=== PATIENT | female | born 1970 ===

== ENCOUNTER 2017-09-25 00:40 | Emergency (ER) | payer SELFPAY ==
[2017-09-25 00:44] VITALS: BMI 31.1
[2017-09-25] MEDS ORDERED: Albuterol-Ipratrop 3 mg / 0.5 (3 ml) UD IH STA ×3 (00:51→01:47)
--- NOTE | 2017-09-25 00:53 | ED PDOC ---
Arrival/HPI - General Time Seen by Provider: 09/25/17 00:44 Historian: Patient - History of Present Illness Narrative History of Present Illness (Text): 09/25/17 00:50 47 year old female whose past medical history includes bronchial asthma, seasonal allergies presents to the emergency department complaining of wheezing and shortness of breath that began today. Patient states she had been using her medication at home with only moderate relief. Patient reports nasal congestion, itchy watery eyes but denies any fever, chills, cough, chest pain, nausea, vomiting, diarrhea, urinary symptoms, back pain, neck pain, headache, dizziness , or any other complaints. PMD: Dr. Mercedes Gagnon Time/Duration: Other (today) Symptom Onset: Sudden Symptom Course: Unchanged Activities at Onset: Light Context: Home Past Medical History - Provider Review Nursing Documentation Reviewed: Yes Family/Social History - Physician Review Nursing Documentation Reviewed: Yes Family/Social History: No Known Family HX Allergies/Home Meds Allergies/Adverse Reactions: Allergies No Known Allergies Allergy (Verified 09/25/17 00:44) Home Medications: Home Meds Medication Instructions Recorded Confirmed Albuterol HFA [Ventolin HFA 90 1 puff INH PRN PRN 09/25/17 09/25/17 mcg/actuation (8 g)] Loratadine [Claritin] 10 mg PO DAILY 09/25/17 09/25/17 Review of Systems - Physician Review All systems were reviewed & negative as marked: Yes - Review of Systems Constitutional: absent: Fevers, Other (Chills) Respiratory: SOB, Wheezing Cardiovascular: absent: Chest Pain Gastrointestinal: absent: Diarrhea, Nausea, Vomiting Genitourinary Female: absent: Dysuria, Frequency, Hematuria Musculoskeletal: absent: Back Pain, Neck Pain Neurological: absent: Headache, Dizziness Physical Exam Vital Signs Reviewed: Yes Vital Signs Pulse Resp BP Pulse Ox 09/25/17 02:18 119 H 18 147/79 96 09/25/17 01:42 115 H 16 132/88 97 09/25/17 00:52 121 H 20 160/103 H 100 09/25/17 00:51 147 H 26 H 166/143 H 92 L 09/25/17 00:49 26 H 91 L Temperature: Afebrile Blood Pressure: Hypertensive Pulse: Tachycardic Respiratory Rate: Normal Appearance: Positive for: Well-Appearing, Non-Toxic, Comfortable Pain Distress: None Mental Status: Positive for: Alert and Oriented X 3 - Systems Exam Head: Present: Atraumatic, Normocephalic Pupils: Present: PERRL Extroacular Muscles: Present: EOMI Conjunctiva: Present: Normal Mouth: Present: Moist Mucous Membranes Pharnyx: Present: Normal Nose (Internal): Present: Other (Nasal congestion) Neck: Present: Normal Range of Motion Respiratory/Chest: Present: Wheezes (wheezing bilaterally ). No: Respiratory Distress, Accessory Muscle Use Cardiovascular: Present: Regular Rate and Rhythm, Normal S1, S2. No: Murmurs Abdomen: No: Tenderness, Distention, Peritoneal Signs Back: Present: Normal Inspection Upper Extremity: Present: Normal Inspection. No: Cyanosis, Edema Lower Extremity: Present: Normal Inspection. No: Edema Neurological: Present: GCS=15, CN II-XII Intact, Speech Normal Skin: Present: Warm, Dry, Normal Color. No: Rashes Psychiatric: Present: Alert, Oriented x 3, Normal Insight, Normal Concentration Medical Decision Making ED Course and Treatment: 09/25/17 00:52 Impression: 47 year old female presents complaining of shortness of breath associated wheezing that began today. Patient's past medical history includes bronchial asthma. Plan: -- Duoneb, Solu-medrol -- Reassess and disposition Progress Notes: - Medication Orders Current Medication Orders: Discontinued Medications Albuterol/Ipratropium (Duoneb 3 Mg/0.5 Mg (3 Ml) Ud) 3 ml IH ONCE STA Stop: 09/25/17 00:52 Last Admin: 09/25/17 00:54 Dose: 3 ml Albuterol/Ipratropium (Duoneb 3 Mg/0.5 Mg (3 Ml) Ud) 3 ml IH ONCE STA Stop: 09/25/17 01:05 Last Admin: 09/25/17 01:15 Dose: 3 ml Albuterol/Ipratropium (Duoneb 3 Mg/0.5 Mg (3 Ml) Ud) 3 ml IH ONCE STA Stop: 09/25/17 01:48 Last Admin: 09/25/17 01:50 Dose: 3 ml Methylprednisolone (Solu-Medrol) 125 mg IVP ONCE ONE Stop: 09/25/17 00:52 Last Admin: 09/25/17 00:56 Dose: 125 mg IVP Administration Document 09/25/17 00:56 SHAN (Rec: 09/25/17 00:56 SHAN [id number]) Charges for Administration # of IVP Administrations 1 - Scribe Statement The provider has reviewed the documentation as recorded by the Sandip Agustin Provider Scribe Attestation: All medical record entries made by the Scribe were at my direction and personally dictated by me. I have reviewed the chart and agree that the record accurately reflects my personal performance of the history, physical exam, medical decision making, and the department course for this patient. I have also personally directed, reviewed, and agree with the discharge instructions and disposition. Disposition/Present on Arrival - Present on Arrival Any Indicators Present on Arrival: No - Disposition Have Diagnosis and Disposition been Completed?: Yes Diagnosis: Asthma exacerbation, Seasonal allergies Disposition: HOME/ ROUTINE Disposition Time: 02:39 Patient Plan: Discharge Condition: GOOD Discharge Instructions (ExitCare): Asthma, Adult (DC), Seasonal Allergies (DC) Prescriptions: Fexofenadine/Pseudoephedrine [Sho-D 12 Hour Tablet] 1 each PO BID PRN #24 tab.er.12h PRN Reason: Nasal Congestion Olopatadine 0.1% Opht [Patanol 5 Ml] 1 drop OU BID PRN #1 bottle PRN Reason: Itching / Pruritus predniSONE [Prednisone] 40 mg PO DAILY #10 tab Albuterol HFA [Ventolin HFA 90 mcg/actuation (8 g)] 2 puff IH [id number] PRN #1 puff PRN Reason: Wheezing Referrals: Cheryl Gangon MD [Primary Care Provider] - Follow up with primary
[2017-09-25 02:18] VITALS: RESP 18
[2017-09-25 02:54] VITALS: BP 135/54; PULSE 100; O2SAT 97
== END 2017-09-25 02:45 | disposition home or self-care (01) ==
LOC: ED 00:40
DX: J45.901 Unspecified asthma with (acute) exacerbation (principal); J30.2 Other seasonal allergic rhinitis
CPT/HCPCS: 96374; 99285; J2930

== ENCOUNTER 2018-04-13 06:01 | Emergency (ER) | payer MEDICAID, OTHER ==
[2018-04-13 06:14] VITALS: BMI 29.2
--- NOTE | 2018-04-13 06:33 | ED PDOC ---
Arrival/HPI - General Chief Complaint: Chest Pain Time Seen by Provider: 04/13/18 06:16 Historian: Patient - History of Present Illness Narrative History of Present Illness (Text): 04/13/18 06:20 Patient presents to ED Past Medical History of Asthma with complaint of epigastric discomfort since last night described as a burning sensation radiating to the chest and back.No nausea,vomiting or diarrhea.No SOB.No fever or chills.No hx. of exertional chest pain or GOMES.Patient states she had taken a mixture of baking soda with minimal relief.Given persistence of symptoms patient came to the ED for further evaluation. Past Medical History - Provider Review Nursing Documentation Reviewed: Yes - Travel History Have you recently traveled outside [place] w/in the past 3 mons?: No - Cardiac Hx Cardiac Disorders: No - Pulmonary Hx Respiratory Disorders: Yes Hx Asthma: Yes - Neurological Hx Neurological Disorder: No - HEENT Hx HEENT Disorder: No - Renal Hx Renal Disorder: No - Endocrine/Metabolic Hx Endocrine Disorders: No - Hematological/Oncological Hx Blood Disorders: No - Integumentary Hx Dermatological Disorder: No - Musculoskeletal/Rheumatological Hx Musculoskeletal Disorders: No - Gastrointestinal Hx Gastrointestinal Disorders: No - Genitourinary/Gynecological Hx Genitourinary Disorders: No - Psychiatric Hx Psychophysiologic Disorder: No Hx Substance Use: No - Anesthesia Hx Anesthesia: No Family/Social History - Physician Review Nursing Documentation Reviewed: Yes Family/Social History: No Known Family HX Smoking Status: Never Smoked Hx Alcohol Use: No Hx Substance Use: No Allergies/Home Meds Allergies/Adverse Reactions: Allergies No Known Allergies Allergy (Verified 09/25/17 00:44) Home Medications: Home Meds Medication Instructions Recorded Confirmed Albuterol HFA [Ventolin HFA 90 1 puff INH PRN PRN 09/25/17 04/13/18 mcg/actuation (8 g)] Loratadine [Claritin] 10 mg PO DAILY 09/25/17 04/13/18 Review of Systems - Review of Systems Constitutional: Normal Eyes: Normal ENT: Normal Respiratory: Normal Cardiovascular: Normal, Chest Pain Gastrointestinal: Abdominal Pain Genitourinary Female: Normal Musculoskeletal: Normal Skin: Normal Neurological: Normal Endocrine: Normal Hemo/Lymphatic: Normal Psychiatric: Normal Physical Exam Vital Signs Temp Pulse Resp BP Pulse Ox 04/13/18 06:19 98.1 F 90 18 125/81 100 Temperature: Afebrile Blood Pressure: Normal Pulse: Regular Respiratory Rate: Normal Appearance: Positive for: Well-Appearing, Non-Toxic, Comfortable Pain Distress: None Mental Status: Positive for: Alert and Oriented X 3 - Systems Exam Head: Present: Atraumatic, Normocephalic Pupils: Present: PERRL Extroacular Muscles: Present: EOMI Conjunctiva: Present: Normal Mouth: Present: Moist Mucous Membranes Pharnyx: Present: Normal Neck: Present: Normal Range of Motion Respiratory/Chest: Present: Clear to Auscultation, Good Air Exchange. No: Respiratory Distress, Accessory Muscle Use Cardiovascular: Present: Regular Rate and Rhythm, Normal S1, S2. No: Murmurs Abdomen: Present: Tenderness (epigastric), Normal Bowel Sounds. No: Distention, Peritoneal Signs, Rebound, Guarding Back: Present: Normal Inspection Upper Extremity: Present: Normal Inspection. No: Cyanosis, Edema Lower Extremity: Present: Normal Inspection. No: Edema Neurological: Present: GCS=15, CN II-XII Intact, Speech Normal, Motor Func Grossly Intact, Normal Sensory Function Skin: Present: Warm, Dry, Normal Color. No: Rashes Psychiatric: Present: Alert, Oriented x 3, Normal Insight, Normal Concentration Medical Decision Making ED Course and Treatment: 04/13/18 06:35 --Plan- EKG/CXR/Labs/GB sono -response to treatment -reassess/final disposition 04/13/18 07:00 Case endorsed to /pending labs/ultrasound/response to treatment/reassess/final disposition - EKG Interpretation EKG Interpretation (Text): 04/13/18 06:47 EKG- NSR@73, no acute changes Interpreted by ED Physician: Yes Type: 12 lead EKG Disposition/Present on Arrival - Present on Arrival Any Indicators Present on Arrival: No History of DVT/PE: No History of Uncontrolled Diabetes: No Urinary Catheter: No History of Decub. Ulcer: No History Surgical Site Infection Following: None - Disposition Have Diagnosis and Disposition been Completed?: No Diagnosis: Chest pain, Abdominal pain Disposition Time: 07:00 Condition: STABLE Discharge Instructions (ExitCare): Chest Pain (ED) Forms: [employer] (Indian)
[2018-04-13 07:00] LABS: HEMOGLOBIN 14.5 g/dL (12.0-16.0); MEAN CELL VOLUME 86.6 fl (80.0-105.0); MEAN CORPUSCULAR HEMOGLOBIN 30.3 pg (25.0-35.0); MEAN CORPUSCULAR HGB CONC 34.9 g/dl (31.0-37.0); MEAN PLATELET VOLUME 12.1 fl (7.0-11.0); RBC 4.79 10^6/uL (3.5-6.1); RED CELL DISTRIBUTION WIDTH 13.6 % (11.5-14.5); WHITE BLOOD COUNT 8.1 10^3/uL (4.5-11.0)
[2018-04-13 07:03] LABS: INR 1.11; PARTIAL THROMBOPLASTIN TIME 29.4 Seconds (25.1-36.5); PROTHROMBIN TIME 12.8 SECONDS (9.4-12.5)
[2018-04-13 07:13] LABS: ALBUMIN 3.8 g/dL (3.0-4.8); ALT/SGPT 22 U/L (7-56); AST/SGOT 17 U/L (14-36); BLOOD UREA NITROGEN 17 mg/dL (7-21); CALCIUM 8.8 mg/dL (8.4-10.5); GFR NON-AFRICAN AMERICAN > 60; LIPASE 114 U/L (23-300)
[2018-04-13] MEDS ORDERED: Alum-Mag Hydrox-Simethicone Susp (30 mL) PO STA (07:17)
[2018-04-13 07:23] LABS: TROPONIN I < 0.01 ng/mL
--- NOTE | 2018-04-13 07:44 | ED PDOC ---
Physical Exam Vital Signs Reviewed: Yes Vital Signs Temp Pulse Resp BP Pulse Ox 04/13/18 06:19 98.1 F 90 18 125/81 100 Temperature: Afebrile Blood Pressure: Normal Pulse: Regular Respiratory Rate: Normal Appearance: Positive for: Well-Appearing, Non-Toxic, Comfortable Pain Distress: None Mental Status: Positive for: Alert and Oriented X 3 Medical Decision Making ED Course and Treatment: 04/13/18 07:42 48 year old female signed out to me, by Dr. Jules, at change of shift pending labs. Patient presents with epigastric discomfort radiating to chest, since 14 hrs ago. At this time, patient denies any pain, no abdominal tenderness. Her labs are normal including troponin and CK, pending ultrasound. 04/13/18 09:31 Chest X-ray reviewed, shows: IMPRESSION: No active disease. 04/13/18 11:14 US of Abdomen reviewed, shows: IMPRESSION: There is a 1.2 cm stone near the neck of the gallbladder. There is also a gallbladder polyp or sludge ball in the fundus of the gallbladder. Patient with no symptoms at time of discharge. Feels well. Given surgery follow up info for US findings. Discharged home, return to emergency department for worsening pain, fever, vomiting, dyspnea, or any other problem. - Lab Interpretations Lab Results: 04/13/18 06:24 04/13/18 06:24 Lab Results 04/13/18 06:24: WBC 8.1, RBC 4.79, Hgb 14.5, Hct 41.5, MCV 86.6, MCH 30.3, MCHC 34.9, RDW 13.6, Plt Count 232, MPV 12.1 H 04/13/18 06:24: Sodium 138, Potassium 3.9, Chloride 107, Carbon Dioxide 26, Anion Gap 9 L, BUN 17, Creatinine 0.7, Est GFR ( Amer) > 60, Est GFR (Non-Af Amer) > 60, Random Glucose 138 H, Calcium 8.8, Total Bilirubin 0.3, AST 17, ALT 22, Alkaline Phosphatase 64, Lactate Dehydrogenase 493, Total Creatine Kinase 64, Troponin I < 0.01, Total Protein 7.5, Albumin 3.8, Globulin 3.7, Albumin/Globulin Ratio 1.0 L, Lipase 114 04/13/18 06:24: PT 12.8 H, INR 1.11, APTT 29.4 I have reviewed the lab results: Yes - RAD Interpretation Radiology Orders: 04/13/18 06:38 CHEST PORTABLE [RAD] Stat ABDOMEN COMPLETE [US] Stat - Medication Orders Current Medication Orders: Discontinued Medications Al Hydrox/Mg Hydrox/Simethicone (Maalox Plus 30 Ml) 30 ml PO STAT STA Stop: 04/13/18 07:18 Famotidine (Pepcid) 20 mg IVP STAT STA Stop: 04/13/18 07:18 - Scribe Statement The provider has reviewed the documentation as recorded by the Scribe Hallie Tesfaye Provider Scribe Attestation: All medical record entries made by the Scribe were at my direction and personally dictated by me. I have reviewed the chart and agree that the record accurately reflects my personal performance of the history, physical exam, medical decision making, and the department course for this patient. I have also personally directed, reviewed, and agree with the discharge instructions and disposition. Disposition/Present on Arrival - Present on Arrival Any Indicators Present on Arrival: No History of DVT/PE: No History of Uncontrolled Diabetes: No Urinary Catheter: No History of Decub. Ulcer: No History Surgical Site Infection Following: None - Disposition Have Diagnosis and Disposition been Completed?: Yes Diagnosis: Abdominal pain, Gall stone Disposition: HOME/ ROUTINE Disposition Time: 11:08 Patient Plan: Discharge Condition: STABLE Discharge Instructions (ExitCare): Gallstones Print Language: LAO Prescriptions: Famotidine/Ca Carb/Mag Hydrox [Pepcid Complete Tablet Chew] 1 each PO BID #28 tab.chew Referrals: Kan Bryant MD [Staff Provider] - Follow up with primary Forms: [employer] ([place]i)
[2018-04-13 08:37] VITALS: RESP 16
--- NOTE | 2018-04-13 09:28 | RAD ---
Date of service: 04/13/2018 HISTORY: chest pain COMPARISON: No prior. FINDINGS: LUNGS: No active pulmonary disease. PLEURA: No significant pleural effusion identified, no pneumothorax apparent. CARDIOVASCULAR: No aortic atherosclerotic calcification present. Normal cardiac size. No pulmonary vascular congestion. OSSEOUS STRUCTURES: No significant abnormalities. VISUALIZED UPPER ABDOMEN: Normal. OTHER FINDINGS: None. IMPRESSION: No active disease.
--- NOTE | 2018-04-13 11:06 | US ---
Date of service: 04/13/2018 HISTORY: epigastric pain COMPARISON: None. TECHNIQUE: Sonographic evaluation of the abdomen. FINDINGS: LIVER: Measures 18.3 cm. Normal echogenicity of the liver parenchyma. No mass. No intrahepatic bile duct dilatation. GALLBLADDER: There is a 1.2 cm stone near the neck of the gallbladder. There is also a gallbladder polyp or sludge ball in the fundus of the gallbladder. COMMON BILE DUCT: Measures 5.3 mm. No stones. No dilatation. PANCREAS: Not visualized RIGHT KIDNEY: Measures 9.4 x 4.1 x 4.1cm. Normal echogenicity. No calculus, mass, or hydronephrosis. LEFT KIDNEY: Measures 11.4 x 5.4 x 4.8cm. Normal echogenicity. No calculus, mass, or hydronephrosis. SPLEEN: Normal in size and contour. No mass. 9.0 x 4.2 x 3.6 AORTA: Not visualized IVC: Not visualized OTHER FINDINGS: None. IMPRESSION: There is a 1.2 cm stone near the neck of the gallbladder. There is also a gallbladder polyp or sludge ball in the fundus of the gallbladder.
--- NOTE | 2018-04-13 11:15 | CARD ---
APPROVED REPORT Date of service: 04/13/2018 EKG Measurement Heart [id number] [id number] <Conclusion> Normal sinus rhythm Normal ECG
[2018-04-13 11:25] VITALS: BP 117/60; PULSE 94; TEMP 97.9; O2SAT 98
== END 2018-04-13 11:17 | disposition home or self-care (01) ==
LOC: ED 06:01
DX: R07.9 Chest pain, unspecified (principal); K80.80 Other cholelithiasis without obstruction; R10.9 Unspecified abdominal pain

== ENCOUNTER 2018-04-18 00:13 | Inpatient (IN) | payer MEDICAID, OTHER ==
[2018-04-18 00:13] VITALS: BMI 29.2
--- NOTE | 2018-04-18 01:03 | ED PDOC ---
Arrival/HPI - General Chief Complaint: Abdominal Pain Time Seen by Provider: 04/18/18 00:24 Historian: Patient - History of Present Illness Narrative History of Present Illness (Text): 04/18/18 01:03 Yudith Santacruz is a 48 year old female, whose past medical history includes cholelithiasis and asthma, who presents to the Emergency department accompanied by family complaining of abdominal pain. 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 Patient was recently in the Emergency department on 04/13/2018 for similar complaints, had US Abdomen performed which showed a 1.2 cm stone near neck of gallbladder, gallbladder polyp or sludge ball in the fundus of the gall bladder, and was discharged home. Patient denies any fever, chills, chest pain, shortness of breath, vomiting, diarrhea, back pain, headache, dizziness, or any other complaints. Symptom Onset: Gradual Symptom Course: Unchanged Activities at Onset: Light Context: Home Past Medical History - Provider Review Nursing Documentation Reviewed: Yes - Cardiac Hx Cardiac Disorders: No - Pulmonary Hx Respiratory Disorders: Yes Hx Asthma: Yes - Neurological Hx Neurological Disorder: No - HEENT Hx HEENT Disorder: No - Renal Hx Renal Disorder: No - Endocrine/Metabolic Hx Endocrine Disorders: No - Hematological/Oncological Hx Blood Disorders: No - Integumentary Hx Dermatological Disorder: No - Musculoskeletal/Rheumatological Hx Musculoskeletal Disorders: No - Gastrointestinal Hx Gastrointestinal Disorders: No - Genitourinary/Gynecological Hx Genitourinary Disorders: No - Psychiatric Hx Psychophysiologic Disorder: No Hx Substance Use: No - Anesthesia Hx Anesthesia: No Family/Social History - Physician Review Nursing Documentation Reviewed: Yes Family/Social History: Unknown Family HX Smoking Status: Never Smoked Hx Alcohol Use: No Hx Substance Use: No Allergies/Home Meds Allergies/Adverse Reactions: Allergies No Known Allergies Allergy (Verified 04/18/18 00:47) Home Medications: Home Meds Medication Instructions Recorded Confirmed Albuterol HFA [Ventolin HFA 90 1 puff INH PRN PRN 09/25/17 04/18/18 mcg/actuation (8 g)] Loratadine [Claritin] 10 mg PO DAILY 09/25/17 04/18/18 Review of Systems - Physician Review All systems were reviewed & negative as marked: Yes - Review of Systems Constitutional: Normal. absent: Fevers Eyes: Normal ENT: Normal Respiratory: Normal. absent: SOB, Cough Cardiovascular: Normal. absent: Chest Pain Gastrointestinal: Abdominal Pain. absent: Diarrhea Genitourinary Female: Normal. absent: Dysuria, Frequency, Hematuria, Urine Output Changes Musculoskeletal: Normal. absent: Back Pain, Neck Pain Skin: Normal. absent: Rash Neurological: Normal. absent: Headache, Dizziness Endocrine: Normal Hemo/Lymphatic: Normal Psychiatric: Normal Physical Exam Vital Signs Reviewed: Yes Temperature: Afebrile Blood Pressure: Normal Pulse: Regular Respiratory Rate: Normal Appearance: Positive for: Non-Toxic Mental Status: Positive for: Alert and Oriented X 3 - Systems Exam Head: Present: Atraumatic, Normocephalic Pupils: Present: PERRL Extroacular Muscles: Present: EOMI Conjunctiva: Present: Normal Mouth: Present: Moist Mucous Membranes Neck: Present: Normal Range of Motion Respiratory/Chest: Present: Clear to Auscultation, Good Air Exchange. No: Respiratory Distress, Accessory Muscle Use Cardiovascular: Present: Regular Rate and Rhythm, Normal S1, S2. No: Murmurs Abdomen: Present: Tenderness (Palpable epigastric tenderness). No: Distention, Peritoneal Signs Back: Present: Normal Inspection. No: CVA Tenderness, Midline Tenderness, Paraspinal Tenderness Upper Extremity: Present: Normal Inspection. No: Cyanosis, Edema Lower Extremity: Present: Normal Inspection. No: Edema Neurological: Present: GCS=15, CN II-XII Intact, Speech Normal Skin: Present: Warm, Dry, Normal Color. No: Rashes Psychiatric: Present: Alert, Oriented x 3, Normal Insight, Normal Concentration Medical Decision Making ED Course and Treatment: 04/18/18 01:03 Impression: 48 year old female complaining of severe epigastric pain. Plan: -- US Gallbladder and Pancreas -- EKG -- Chest X-ray -- Labs, cardiac enzymes, lipase -- IV fluids -- Zofran -- Morphine -- Reassess and disposition Prior Visits: Notes and results from previous visits were reviewed. Patient was last seen in the emergency department on Progress Notes: Reviewed EKG, NSR at [address]-segment elevations or depressions, no T-wave inversions, normal intervals. 04/18/18 03:20 Reviewed radiology, Chest X-ray shows no acute processes. US Gallbladder and Pancreas: Findings: Liver measures 15.6 cm. Cholelithiasis. Sludge is noted in the gallbladder. Diffuse thickening of the gallbladder measuring 4.5 mm. 1.7 cm stone is impacted in the neck of the gallbladder. Nondilated common bile duct measuring 3.8 mm. Normal pancreas. Unremarkable IVC. Unremarkable aorta. Right kidney measures 8.7x3.9x5.1 cm. No evidence of hydronephrosis. Impression: Cholelithiasis. Developing acute cholecystitis. Surgical consultation is recommended. Electronically signed on Apr 18, 2018 3:10:10 AM EST by: Lizzy Day M.D., Certified by ABR, MSK, Neuroradiology 04/18/18 03:53 Case discussed with medical office professional instructor chief communications officer, who is aware and agrees with plan. - Scribe Statement The provider has reviewed the documentation as recorded by the Scribe Lorena Rangel Provider Scribe Attestation: All medical record entries made by the Scribe were at my direction and personally dictated by me. I have reviewed the chart and agree that the record accurately reflects my personal performance of the history, physical exam, medical decision making, and the department course for this patient. I have also personally directed, reviewed, and agree with the discharge instructions and disposition. Disposition/Present on Arrival - Present on Arrival Any Indicators Present on Arrival: No History of DVT/PE: No History of Uncontrolled Diabetes: No Urinary Catheter: No History of Decub. Ulcer: No History Surgical Site Infection Following: None - Disposition Have Diagnosis and Disposition been Completed?: Yes Diagnosis: Cholecystitis, Biliary colic Disposition: HOSPITALIZED Disposition Time: 03:52 Patient Plan: Admission Patient Problems: Current Active Problems Problem Status Onset Biliary colic Acute Cholecystitis Acute Condition: STABLE Forms: [employer] (Wallisian)
[2018-04-18] MEDS ORDERED: Morphine 4 mg/ml ISec IVP STA ×2 (01:11→01:50)
[2018-04-18] MEDS ORDERED: Sodium Chloride 0.9% 1,000 ML IV STA (01:11)
[2018-04-18 02:16] LABS: TROPONIN I < 0.01 ng/mL
[2018-04-18 02:28] LABS: HEMOGLOBIN 14.8 g/dL (12.0-16.0); MEAN CELL VOLUME 86.6 fl (80.0-105.0); MEAN CORPUSCULAR HEMOGLOBIN 30.5 pg (25.0-35.0); MEAN CORPUSCULAR HGB CONC 35.2 g/dl (31.0-37.0); RBC 4.86 10^6/uL (3.5-6.1); RED CELL DISTRIBUTION WIDTH 13.4 % (11.5-14.5); WHITE BLOOD COUNT 8.3 10^3/uL (4.5-11.0)
[2018-04-18 03:04] LABS: ALB/GLOB RATIO 0.9 (1.1-1.8); ALT/SGPT 22 U/L (7-56); AST/SGOT 24 U/L (14-36); BLOOD UREA NITROGEN 15 mg/dL (7-21); CALCIUM 9.4 mg/dL (8.4-10.5); GFR NON-AFRICAN AMERICAN > 60; LIPASE 117 U/L (23-300)
[2018-04-18] MEDS ORDERED: metroNIDAZOLE IV 500 mg/100 ml 500 MG/100 ML BAG IVPB STA (03:50)
[2018-04-18] MEDS ORDERED: cefTRIAXone 1 gm 1 GM/100 ML BAG IV STA (03:50)
--- NOTE | 2018-04-18 04:31 | CP.PCM.HP ---
<Blair Fisher - Last Filed: 04/18/18 05:15> History of Present Illness - History of Present Illness History of Present Illness: Blair Fisher, PGY1 Hospital H&P This is a 48 year old female with PMH of asthma and cholelithiasis presenting to the ED for abdominal pain that began today. Patient states abdominal pain started gradually while she was eating rice and tuna in the evening, rated 10/10, sharp, constant, located in the epigastric region and radiated to the middle of her back. Pain was associated with nausea and vomiting x 8 non bloody and non bilious. She was seen in the ED one week ago for abdominal pain and noted to have 1.2cm stone near the neck of the gallbladder, polyp and sludge ball in the fundus of the gall bladder and was discharged home but states pain today is much worse. [place] PMD is in the [place] and she sees her PMD once a year. She denies CP, SOB, fevers, chills, headaches, urinary complaints, diarrhea, constipation, hematemesis, hematochezia, numbness, tingling, swelling, recent travel, sickness, trauma, and lifestyle changes. 12 point ROS noted here, otherwise unremarkable. PMD: in the [place], sees once a year PMH: asthma, cholelithiasis SH: never smoked, drinks occasionally, denies drug use Sx: hysterectomy in 2010 FH: NC Meds: pepcid prn, ventolin prn All: NKDA Present on Admission - Present on Admission Any Indicators Present on Admission: No Past Patient History - Past Social History Smoking Status: Never Smoked - CARDIAC Hx Cardiac Disorders: No - PULMONARY Hx Respiratory Disorders: Yes Hx Asthma: Yes - NEUROLOGICAL Hx Neurological Disorder: No - HEENT Hx HEENT Problems: No - RENAL Hx Chronic Kidney Disease: No - ENDOCRINE/METABOLIC Hx Endocrine Disorders: No - HEMATOLOGICAL/ONCOLOGICAL Hx Blood Disorders: No - INTEGUMENTARY Hx Dermatological Problems: No - MUSCULOSKELETAL/RHEUMATOLOGICAL Hx Musculoskeletal Disorders: No - GASTROINTESTINAL Hx Gastrointestinal Disorders: No - GENITOURINARY/GYNECOLOGICAL Hx Genitourinary Disorders: No - PSYCHIATRIC Hx Psychophysiologic Disorder: No Hx Substance Use: No - SURGICAL HISTORY Hx Surgeries: Yes - ANESTHESIA Hx Anesthesia: No Meds Allergies/Adverse Reactions: Allergies Allergy/AdvReac Type Severity Reaction Status Date / Time No Known Allergies Allergy Verified 04/18/18 00:47 Physical Exam - Constitutional Appears: No Acute Distress - Head Exam Head Exam: ATRAUMATIC, NORMAL INSPECTION - Eye Exam Eye Exam: EOMI Pupil Exam: PERRL - ENT Exam ENT Exam: Mucous Membranes Moist - Respiratory Exam Respiratory Exam: Clear to Auscultation Bilateral. absent: Accessory Muscle Use, Wheezes, Respiratory Distress - Cardiovascular Exam Cardiovascular Exam: REGULAR RHYTHM, +S1, +S2 - GI/Abdominal Exam GI & Abdominal Exam: Normal Bowel Sounds, Soft. absent: Firm, Guarding Additional comments: epigastric tenderness appreciated with deep palpation - Extremities Exam Extremities exam: Positive for: normal inspection, pedal pulses present. Negative for: calf tenderness - Back Exam Back exam: absent: CVA tenderness (L), CVA tenderness (R), paraspinal tenderness - Neurological Exam Neurological exam: Alert, Oriented x3 - Skin Skin Exam: Normal Color, Warm Results - Vital Signs Recent Vital Signs: Last Vital Signs Temp 97.8 F 04/18/18 00:56 Pulse 101 H 04/18/18 00:56 Resp 16 04/18/18 00:56 BP 143/86 04/18/18 00:56 Pulse Ox 98 04/18/18 00:56 - Labs Result Diagrams: 04/18/18 01:05 04/18/18 01:05 Labs: Laboratory Results - last 24 hr 04/18/18 04/18/18 01:05 01:05 WBC 8.3 RBC 4.86 Hgb 14.8 Hct 42.1 MCV 86.6 MCH 30.5 MCHC 35.2 RDW 13.4 Plt Count 237 MPV 12.0 H Sodium 137 Potassium 3.5 L Chloride 103 Carbon Dioxide 26 Anion Gap 12 BUN 15 Creatinine 0.9 Est GFR ( Amer) > 60 Est GFR (Non-Af Amer) > 60 Random Glucose 149 H Calcium 9.4 Total Bilirubin 0.4 AST 24 ALT 22 Alkaline Phosphatase 76 Lactate Dehydrogenase 560 Total Creatine Kinase 92 Troponin I < 0.01 Total Protein 8.4 H Albumin 4.0 Globulin 4.4 Albumin/Globulin Ratio 0.9 L Lipase 117 Assessment & Plan - Assessment and Plan (Free Text) Assessment: This is a 48 year old female with PMH of asthma and cholelithiasis presenting to the ED for abdominal pain that began today. Plan: Epigastric pain: -concern for acute cholecystitis -gallbladder US showed cholelithiasis with 1.7 cm stone is impacted in the neck of the gallbladder, developing acute cholecystitis. F/u official read -CXR shows no acute disease, f/u official read -blood culture pending -lipase, troponin WNL -toradol IVP prn for pain -NS @ 100 -rocephin and flagyl -NPO -General surgery on consult Hypokalemia: -repleted, f/u labs Hx of asthma: -ventolin as needed PPX with protonix and SCD Patient seen and case discussed with attending, Dr. Smith <Richard Smith - Last Filed: 04/18/18 06:15> Results - Vital Signs Recent Vital Signs: Last Vital Signs Temp 98.0 F 04/18/18 04:53 Pulse 86 04/18/18 04:53 Resp 18 04/18/18 04:53 BP 148/82 04/18/18 04:53 Pulse Ox 98 04/18/18 04:53 - Labs Result Diagrams: 04/18/18 01:05 04/18/18 01:05 Labs: Laboratory Results - last 24 hr 04/18/18 04/18/18 01:05 01:05 WBC 8.3 RBC 4.86 Hgb 14.8 Hct 42.1 MCV 86.6 MCH 30.5 MCHC 35.2 RDW 13.4 Plt Count 237 MPV 12.0 H Sodium 137 Potassium 3.5 L Chloride 103 Carbon Dioxide 26 Anion Gap 12 BUN 15 Creatinine 0.9 Est GFR ( Amer) > 60 Est GFR (Non-Af Amer) > 60 Random Glucose 149 H Calcium 9.4 Total Bilirubin 0.4 AST 24 ALT 22 Alkaline Phosphatase 76 Lactate Dehydrogenase 560 Total Creatine Kinase 92 Troponin I < 0.01 Total Protein 8.4 H Albumin 4.0 Globulin 4.4 Albumin/Globulin Ratio 0.9 L Lipase 117 Attending/Attestation - Attestation I have personally seen and examined this patient.: Yes I have fully participated in the care of the patient.: Yes I have reviewed all pertinent clinical information: Yes
[2018-04-18] MEDS ORDERED: Sodium Chloride 0.9% 1,000 ML IV SCH (05:15)
[2018-04-18] MEDS ORDERED: Albuterol 0.083% Inhal Sol (2.5 mg/3 mL) UD IH PRN (05:41)
[2018-04-18] MEDS: metroNIDAZOLE IV 500 mg/100 ml 500 MG/100 ML BAG IVPB SCH ×3 (05:59→22:30)
[2018-04-18] MEDS: Potassium Chloride 20 mEq ER Tab PO STA ×2 (05:59→06:12)
[2018-04-18] MEDS ORDERED: Pantoprazole 40 mg EC Tab PO SCH (06:00)
[2018-04-18] MEDS ORDERED: Morphine 2 mg/ml ISec IVP PRN (06:09)
--- NOTE | 2018-04-18 06:14 | CP.PCM.CON ---
<Kala Hilton - Last Filed: 04/18/18 06:16> History of Present Illness - History of Present Illness History of Present Illness: Surgery consult note for Dr. Plaza Consulted for symptomatic cholelithiasis Pt is a 48F with PMH of gastritis who is here for recurrent epigastric pain with eating, nausea and vomiting. patient states the pain started approximately 11 hours ago, and had one episode of green emesis, no hematemesis. Patient came to ER 5 days ago for similar complaints, was found to have a gallstone, and sent home with instructions to follow up with a general surgeon as an outpatient. Patient also reports mid upper back pain, but denies diarrhea, constipation, fevers, chills, dysuria, hematuria, or any other symptoms. Patient states she had an upper endoscopy in the past that showed gastritits and a colonoscopy that was negative in the past PMH: asthma, gastritis PSH: hysterectomy ALL: NKDA Social: denies tobacco, occasional ETOH, denies drug use Review of Systems - Review of Systems All systems: reviewed and no additional remarkable complaints except (as per HPI) Past Patient History - Past Medical History & Family History Past Medical History?: Yes Past Family History: Reviewed and not pertinent - Past Social History Smoking Status: Never Smoked Alcohol: Occasional Drugs: Denies - CARDIAC Hx Cardiac Disorders: No - PULMONARY Hx Respiratory Disorders: Yes Hx Asthma: Yes - NEUROLOGICAL Hx Neurological Disorder: No - HEENT Hx HEENT Problems: No - RENAL Hx Chronic Kidney Disease: No - ENDOCRINE/METABOLIC Hx Endocrine Disorders: No - HEMATOLOGICAL/ONCOLOGICAL Hx Blood Disorders: No - INTEGUMENTARY Hx Dermatological Problems: No - MUSCULOSKELETAL/RHEUMATOLOGICAL Hx Musculoskeletal Disorders: No - GASTROINTESTINAL Hx Gastrointestinal Disorders: No - GENITOURINARY/GYNECOLOGICAL Hx Genitourinary Disorders: No - PSYCHIATRIC Hx Psychophysiologic Disorder: No Hx Substance Use: No - SURGICAL HISTORY Hx Surgeries: Yes - ANESTHESIA Hx Anesthesia: No Meds Allergies/Adverse Reactions: Allergies Allergy/AdvReac Type Severity Reaction Status Date / Time No Known Allergies Allergy Verified 04/18/18 00:47 - Medications Medications: Current Medications Albuterol Sulfate (Albuterol 0.083% Inhal Dee (2.5 Mg/3 Ml) Ud) 2.5 mg IH [id number] PRN PRN Reason: Shortness of Breath Docusate Sodium (Colace) 100 mg PO DAILY [facility] Famotidine (Pepcid) 20 mg IVP DAILY [facility] Metronidazole (Flagyl) 500 mg in 100 mls @ 100 mls/hr IVPB Q8 [facility]; Protocol Last Admin: 04/18/18 05:59 Dose: 100 mls/hr Ceftriaxone Sodium (Rocephin 1 Gram Ivpb) 1 gm in 100 mls @ 100 mls/hr IVPB DAILY [facility]; Protocol Sodium Chloride (Sodium Chloride 0.9%) 1,000 mls @ 100 mls/hr IV .Q10H [facility] Last Admin: 04/18/18 06:02 Dose: 100 mls/hr Morphine Sulfate (Morphine) 2 mg IVP Q4H PRN PRN Reason: Pain, severe (8-10) Ondansetron HCl (Zofran Inj) 4 mg IVP Q6H PRN PRN Reason: Nausea/Vomiting Oxycodone/Acetaminophen (Percocet 5/325 Mg Tab) 1 tab PO Q4H PRN PRN Reason: Pain, moderate (4-7) Stop: 04/21/18 06:10 Physical Exam - Constitutional Appears: Well, Non-toxic, No Acute Distress - Head Exam Head Exam: ATRAUMATIC, NORMOCEPHALIC - Eye Exam Eye Exam: Normal appearance. absent: Conjunctival injection, Scleral icterus - ENT Exam ENT Exam: Mucous Membranes Moist, Normal Oropharynx - Respiratory Exam Respiratory Exam: NORMAL BREATHING PATTERN. absent: Accessory Muscle Use, Respiratory Distress - Cardiovascular Exam Cardiovascular Exam: RRR - GI/Abdominal Exam GI & Abdominal Exam: Soft, Tenderness (mild epigastric tenderness). absent: Distended, Rebound - Extremities Exam Extremities exam: Positive for: pedal pulses present. Negative for: calf tenderness, pedal edema - Back Exam Back exam: absent: CVA tenderness (L), CVA tenderness (R) - Neurological Exam Neurological exam: Alert, Oriented x3 - Psychiatric Exam Psychiatric exam: Normal Affect, Normal Mood - Skin Skin Exam: Dry, Intact, Normal Color, Warm Results - Vital Signs Recent Vital Signs: Last Vital Signs Temp 98.0 F 04/18/18 04:53 Pulse 86 04/18/18 04:53 Resp 18 04/18/18 04:53 BP 148/82 04/18/18 04:53 Pulse Ox 98 04/18/18 04:53 - Labs Result Diagrams: 04/18/18 01:05 04/18/18 01:05 Labs: Laboratory Results - last 24 hr 04/18/18 04/18/18 01:05 01:05 WBC 8.3 RBC 4.86 Hgb 14.8 Hct 42.1 MCV 86.6 MCH 30.5 MCHC 35.2 RDW 13.4 Plt Count 237 MPV 12.0 H Sodium 137 Potassium 3.5 L Chloride 103 Carbon Dioxide 26 Anion Gap 12 BUN 15 Creatinine 0.9 Est GFR ( Amer) > 60 Est GFR (Non-Af Amer) > 60 Random Glucose 149 H Calcium 9.4 Total Bilirubin 0.4 AST 24 ALT 22 Alkaline Phosphatase 76 Lactate Dehydrogenase 560 Total Creatine Kinase 92 Troponin I < 0.01 Total Protein 8.4 H Albumin 4.0 Globulin 4.4 Albumin/Globulin Ratio 0.9 L Lipase 117 Assessment & Plan - Assessment and Plan (Free Text) Assessment: 48F with symptomatic cholelithiasis vs cholecystitis vs gastroenteritis Plan: Keep patient NPO except meds PRN pain and nausea medication pepcid Trend CBC/CMP IVF Replete potassium Possible cholecystectomy this admission vs outpatient planning Will discuss with Dr. Plaza, further recommendations per him Kala Hilton, PGY2 <Fred Plaza - Last Filed: 04/26/18 08:07> Results - Vital Signs Recent Vital Signs: Last Vital Signs Temp 98.4 F 04/18/18 21:56 Pulse 84 04/18/18 21:56 Resp 18 04/18/18 21:56 BP 118/68 04/18/18 21:56 Pulse Ox 98 04/18/18 21:56 - Labs Result Diagrams: 04/19/18 07:00 04/19/18 07:00 Assessment & Plan - Assessment and Plan (Free Text) Plan: Patient was seen, examined and evaluated by me. I agree with resident's assessment and plan.
[2018-04-18 07:08] LABS: INR 1.15; PARTIAL THROMBOPLASTIN TIME 30.6 Seconds (25.1-36.5); PROTHROMBIN TIME 13.3 SECONDS (9.4-12.5)
[2018-04-18 07:40] LABS: URINE BILIRUBIN NEGATIVE (NEGATIVE); URINE BLOOD NEGATIVE (NEGATIVE); URINE GLUCOSE (UA) NEGATIVE (NEGATIVE); URINE LEUKOCYTE ESTERASE NEGATIVE Leu/uL (NEGATIVE); URINE PROTEIN NEGATIVE mg/dL (<30 mg/dL)
[2018-04-18 07:42] LABS: URINE APPEARANCE CLEAR (CLEAR); URINE COLOR YELLOW (YELLOW)
[2018-04-18] MEDS: cefTRIAXone 1 gm 1 GM/100 ML BAG IVPB SCH (09:30)
--- NOTE | 2018-04-18 09:36 | RAD ---
Date of service: 04/18/2018 HISTORY: abdominal pain COMPARISON: 04/13/2018 FINDINGS: LUNGS: No active pulmonary disease. PLEURA: No significant pleural effusion identified, no pneumothorax apparent. CARDIOVASCULAR: No aortic atherosclerotic calcification present. Normal cardiac size. No pulmonary vascular congestion. OSSEOUS STRUCTURES: No significant abnormalities. VISUALIZED UPPER ABDOMEN: Normal. OTHER FINDINGS: None. IMPRESSION: No active disease.
[2018-04-18] MEDS ORDERED: Albuterol-Ipratrop 3 mg / 0.5 (3 ml) UD IH STA (10:10)
[2018-04-18] MEDS ORDERED: Iohexol 240 (50 ml) ONE (10:39)
[2018-04-18] MEDS ORDERED: Bupivacaine 0.5% 50 ML IJ ONE (10:39)
[2018-04-18] MEDS ORDERED: HYDROmorphone 0.5 mg/0.5 ml ISec IVP PRN (10:46)
[2018-04-18] MEDS ORDERED: Lactated Ringer's 1,000 ML IV SCH (11:00)
--- NOTE | 2018-04-18 11:01 | US ---
Date of service: 04/18/2018 HISTORY: pain COMPARISON: None. TECHNIQUE: Sonographic evaluation of the right upper quadrant of the abdomen. FINDINGS: LIVER: Measures 15.6 cm in length. Normal echogenicity of the liver parenchyma. No mass. No intrahepatic bile duct dilatation. GALLBLADDER: 1.6 cm stone in the gallbladder neck. There is gallbladder sludge COMMON BILE DUCT: Measures 3.8 mm. No stones. No dilatation. PANCREAS: Unremarkable as visualized. No mass. No ductal dilatation. RIGHT KIDNEY: Measures 8.7 x 3.9 x 5.1 cm in length. Normal echogenicity. No calculus, mass, or hydronephrosis. AORTA: No aneurysmal dilatation. IVC: Unremarkable. OTHER FINDINGS: None . IMPRESSION: 1.7 cm stone in the gallbladder neck
[2018-04-18] MEDS ORDERED: Lidocaine PF 2% (5 ml) Inj (For Cardiac Arrhy) ONE (11:12)
[2018-04-18] MEDS ORDERED: Midazolam 2 MG/2 ML VIAL ONE (11:12)
[2018-04-18] MEDS ORDERED: Rocuronium 10 mg/ml (5 ml) ONE (11:12)
[2018-04-18] MEDS ORDERED: Bupivacaine 0.5% Inj(30mL) IJ ONE (11:35)
[2018-04-18] MEDS ORDERED: Iohexol 240 (50 ml) IVP ONE (12:08)
[2018-04-18] MEDS ORDERED: Glycopyrrolate 0.2 mg/ml (2ml vial) ONE (12:28)
[2018-04-18] MEDS ORDERED: Neostigmine Methylsulfate 3mg/3ml Syringe IV ONE (12:28)
--- NOTE | 2018-04-18 12:55 | PCM.SURG1 ---
Surgeon's Initial Post Op Note - Surgeon's Notes Surgeon: Dr. Plaza Disposal Worker: Dr. Aleman PGY3 Pre-Operative Diagnosis: acute cholecystitis Operative Findings: see operative report Post-Operative Diagnosis: same Operation Performed: laparoscopic cholecystectomy with IOC Specimen/Specimens Removed: gallbladder Estimated Blood Loss: EBL {In ML}: 5 Blood Products Given: N/A Drains Used: No Drains Post-Op Condition: Good Date of Surgery/Procedure: 04/18/18 Time of Surgery/Procedure: 12:56
--- NOTE | 2018-04-18 13:15 | RAD ---
Date of service: 04/18/2018 PROCEDURE: Operative cholangiogram HISTORY: ? CBD OBST COMPARISON: TECHNIQUE: 35.8 sec of fluoro time. 4.08 mGy cumulative dose. Four images were submitted FINDINGS: The common duct is unremarkable with no filling defects. Contrast flows into the duodenum without obstruction IMPRESSION: As above
--- NOTE | 2018-04-18 14:37 | CARD ---
APPROVED REPORT Date of service: 04/18/2018 EKG Measurement Heart [id number] <Conclusion> Normal sinus rhythm Normal ECG
--- NOTE | 2018-04-18 14:50 | CP.PCM.PN ---
Subjective - Date & Time of Evaluation Date of Evaluation: 04/18/18 Time of Evaluation: 07:55 - Subjective Subjective: Internal Medicine progress note for Dr. Shook Patient seen and examined this am at bedside. OLGA LIDIAO per nursing. Patient is resting comfortably but continues to have epigastric abdominal pain. She states he N/V has been well controlled since admission. She understand that she will be going to OR this am for Cholecystectomy. Objective - Vital Signs/Intake and Output Vital Signs (last 24 hours): Temp Pulse Resp BP Pulse Ox 98.1 F 76 16 131/77 100 04/18/18 14:17 04/18/18 14:17 04/18/18 14:17 04/18/18 14:17 04/18/18 14:17 Intake and Output: 04/18/18 04/18/18 06:59 18:59 Intake Total 75 Balance 75 - Medications Medications: Current Medications Albuterol Sulfate (Albuterol 0.083% Inhal Dee (2.5 Mg/3 Ml) Ud) 2.5 mg IH [id number] PRN PRN Reason: Shortness of Breath Docusate Sodium (Colace) 100 mg PO DAILY [facility] Last Admin: 04/18/18 10:38 Dose: Not Given Famotidine (Pepcid) 20 mg IVP DAILY [facility] Last Admin: 04/18/18 10:50 Dose: 20 mg Metronidazole (Flagyl) 500 mg in 100 mls @ 100 mls/hr IVPB Q8 [facility]; Protocol Last Admin: 04/18/18 05:59 Dose: 100 mls/hr Ceftriaxone Sodium (Rocephin 1 Gram Ivpb) 1 gm in 100 mls @ 100 mls/hr IVPB DAILY [facility]; Protocol Last Admin: 04/18/18 09:30 Dose: 100 mls/hr Potassium Chloride 20 meq/ (Sodium Chloride) 1,010 mls @ 100 mls/hr IV .Q10H6M [facility] Lactated Ringer's (Lactated Ringer's) 1,000 mls @ 75 mls/hr IV .[id number] [facility] Stop: 04/18/18 19:01 Morphine Sulfate (Morphine) 2 mg IVP Q4H PRN PRN Reason: Pain, severe (8-10) Ondansetron HCl (Zofran Inj) 4 mg IVP Q6H PRN PRN Reason: Nausea/Vomiting Oxycodone/Acetaminophen (Percocet 5/325 Mg Tab) 1 tab PO Q4H PRN PRN Reason: Pain, moderate (4-7) Stop: 04/21/18 06:10 - Labs Labs: 04/18/18 01:05 04/18/18 01:05 PT 13.3 SECONDS (9.4-12.5) H 04/18/18 06:00 INR 1.15 04/18/18 06:00 APTT 30.6 Seconds (25.1-36.5) 04/18/18 06:00 - Constitutional Appears: Well, Non-toxic, No Acute Distress - Head Exam Head Exam: ATRAUMATIC, NORMOCEPHALIC - Eye Exam Eye Exam: EOMI - ENT Exam ENT Exam: Mucous Membranes Moist - Respiratory Exam Respiratory Exam: NORMAL BREATHING PATTERN - Cardiovascular Exam Cardiovascular Exam: REGULAR RHYTHM - GI/Abdominal Exam GI & Abdominal Exam: Soft, Tenderness (Epigastric). absent: Distended, Rebound - Extremities Exam Extremities Exam: absent: Calf Tenderness, Pedal Edema - Neurological Exam Neurological Exam: Alert, Awake, Oriented x3 - Psychiatric Exam Psychiatric exam: Normal Affect, Normal Mood - Skin Skin Exam: Dry, Intact, Normal Color, Warm Assessment and Plan - Assessment and Plan (Free Text) Assessment: 48 yr old female with cholelithiasis, US suggestive of Cholecystitis, scheduled for removal today Plan: Abdominal pain: - pt to go to OR today for Cholecystectomy - pain control as per Surgery - advance diet per surgery recs - c/w zofran for nausea - c/w antibiotics - pt discussed with Dr. Bouchra Jorgensen, PGY 1
[2018-04-18 21:58] VITALS: BP 118/68; PULSE 84; RESP 18; TEMP 98.4; O2SAT 98
--- NOTE | 2018-04-19 00:37 | OP ---
PROCEDURE DATE: 04/18/2018 PREOPERATIVE DIAGNOSES: Acute cholecystitis and cholelithiasis, incarcerated umbilical area. POSTOPERATIVE DIAGNOSES: Acute cholecystitis and cholelithiasis, incarcerated umbilical area. PROCEDURE PERFORMED: 1. Laparoscopic cholecystectomy with intraoperative cholangiogram. 2. Repair of the incarcerated umbilical hernia. SURGEON: Fred Plaza MD AUTOMATIC QUILLING MACHINE OPERATOR: Derrick Aleman DO TYPE OF ANESTHESIA: General endotracheal anesthesia. ANESTHESIA ADMINISTERED BY: Dr. Garcia. ESTIMATED BLOOD LOSS: Minimal SPECIMEN: Gallbladder with stones. INDICATION: The patient is a 48-year-old female with history of recurrent right upper quadrant abdominal pain and thickened gallbladder wall with cholelithiasis. The patient was diagnosed with acute cholecystitis, and therefore, brought in for laparoscopic cholecystectomy. DESCRIPTION OF PROCEDURE: The patient was brought to the operating room and placed on the operating room table in supine position. The patient was connected to EKG, blood pressure, and pulse oximetry monitors. The patient then underwent general endotracheal anesthesia and was prepped and draped in the usual sterile fashion. First, a standard time-out procedure took place and everybody in the room agreed as to the patient's diagnosis, procedure to be performed, and identity. Using two towel clips, the anterior abdominal wall was elevated and a Veress needle was inserted through a small incision superior to the umbilicus. Once pneumoperitoneum was obtained, a 12-mm trocar was inserted. Through that incision, careful evaluation of the abdominal cavity began. Once pneumoperitoneum was obtained, a careful palpation around the incision and the trocar site appeared to show presence of the incarcerated hernia, which was carefully amputated because it was containing preperitoneal fat and the defect was exposed. We then proceeded with laparoscopic cholecystectomy by grabbing the infundibulum and dissecting out the fat off the infundibulum and the cystic duct. The cystic duct was isolated and exposed and so was the cystic artery directly behind it. Once these structures were clearly seen, we then placed the clip proximally on the cystic duct and made a small incision on the side of the cystic duct. A cholangiocatheter was inserted into the cystic duct and the cholangiogram was obtained showing prompt flow of dye into the entire biliary tree without any obstruction and emptying into the duodenum promptly. We then proceeded with removing the cystic duct catheter and clipped the cystic duct distally and transacted it. Cystic artery was also clipped proximally and distally and transacted. Using electrocautery, the gallbladder was detached from the liver bed. It appeared to have a lot of edema surrounding it. Once completely detached, it was placed in the EndoCatch bag and removed through the paraumbilical incision. On palpation, the gallbladder appeared to contain stones and had a thick wall. Now, proceeded with copiously irrigating the right upper quadrant and suctioned out all the fluid. There was perfect hemostasis noted. We then proceeded with removal of the subxiphoid 5 mm port, which was inserted earlier and release the pneumoperitoneum. The trocar site at the umbilicus which was 12 mm trocar was closed using 0 Vicryl in a [id number] fashion. Once this was closed, the subcutaneous tissues were closed using 3-0 Vicryl, and the skin was closed using 4-0 Monocryl. A sterile Dermabond dressing was applied to all these wounds. The patient tolerated the procedure well, and there were no complications. The patient was awakened and extubated and transferred to the recovery room for further observation. During the closure of the puncture site of the 12 mm trocar, I also included the closure of the umbilical hernia with a [id number] stitches of 0 Vicryl. Once both the trocar defect and the hernia were closed, we then proceeded with closure of the skin. Fred Plaza MD
[2018-04-19] MEDS: Oxycodone/Acetaminophen 5/325 mg Tab PO PRN ×2 (03:47→13:14)
[2018-04-19] MEDS: metroNIDAZOLE IV 500 mg/100 ml 500 MG/100 ML BAG IVPB SCH (05:01)
[2018-04-19 07:22] LABS: BASO # 0.02 K/mm3 (0.0-2.0); BASO % 0.3 % (0.0-3.0); EOS # 0.1 (0.0-0.7); EOS % 1.5 % (1.5-5.0); GRAN # 3.71 (1.4-6.5); GRAN % 50.8 % (50.0-68.0); HEMOGLOBIN 12.7 g/dL (12.0-16.0); LYMPH # 2.9 (1.2-3.4); LYMPH % 39.3 % (22.0-35.0); MEAN CELL VOLUME 87.4 fl (80.0-105.0); MEAN CORPUSCULAR HEMOGLOBIN 29.7 pg (25.0-35.0); MEAN PLATELET VOLUME 11.4 fl (7.0-11.0); MONO # 0.6 (0.1-0.6); MONO % 8.1 % (1.0-6.0); RBC 4.28 10^6/uL (3.5-6.1); RED CELL DISTRIBUTION WIDTH 13.7 % (11.5-14.5); WHITE BLOOD COUNT 7.3 10^3/uL (4.5-11.0)
[2018-04-19 08:08] LABS: BLOOD UREA NITROGEN 7 mg/dL (7-21); GFR NON-AFRICAN AMERICAN > 60
[2018-04-19 08:09] LABS: ALB/GLOB RATIO 0.9 (1.1-1.8); CALCIUM 7.9 mg/dL (8.4-10.5)
[2018-04-19 08:10] LABS: ALT/SGPT 43 U/L (7-56); AST/SGOT 44 U/L (14-36)
--- NOTE | 2018-04-19 09:51 | CP.PCM.PN ---
<Derrick Aleman - Last Filed: 04/19/18 09:46> Subjective - Date & Time of Evaluation Date of Evaluation: 04/19/18 Time of Evaluation: 06:30 - Subjective Subjective: Patient seen and examined. No acute events over night. Tolerating diet. Denies fever/chills, nausea/vomiting. Objective - Vital Signs/Intake and Output Vital Signs (last 24 hours): Temp Pulse Resp BP Pulse Ox 98.4 F 84 18 118/68 98 04/18/18 21:56 04/18/18 21:56 04/18/18 21:56 04/18/18 21:56 04/18/18 21:56 Intake and Output: 04/19/18 04/19/18 06:59 18:59 Intake Total 360 Balance 360 - Medications Medications: Current Medications Albuterol Sulfate (Albuterol 0.083% Inhal Dee (2.5 Mg/3 Ml) Ud) 2.5 mg IH [id number] PRN PRN Reason: Shortness of Breath Docusate Sodium (Colace) 100 mg PO DAILY [facility] Last Admin: 04/18/18 10:38 Dose: Not Given Famotidine (Pepcid) 20 mg IVP DAILY [facility] Last Admin: 04/18/18 10:50 Dose: 20 mg Metronidazole (Flagyl) 500 mg in 100 mls @ 100 mls/hr IVPB Q8 [facility]; Protocol Last Admin: 04/19/18 05:01 Dose: 100 mls/hr Ceftriaxone Sodium (Rocephin 1 Gram Ivpb) 1 gm in 100 mls @ 100 mls/hr IVPB DAILY [facility]; Protocol Last Admin: 04/18/18 09:30 Dose: 100 mls/hr Ondansetron HCl (Zofran Inj) 4 mg IVP Q6H PRN PRN Reason: Nausea/Vomiting Oxycodone/Acetaminophen (Percocet 5/325 Mg Tab) 1 tab PO Q4H PRN PRN Reason: Pain, moderate (4-7) Stop: 04/21/18 06:10 Last Admin: 04/19/18 03:47 Dose: 1 tab - Labs Labs: 04/19/18 07:00 04/19/18 07:00 PT 13.3 SECONDS (9.4-12.5) H 04/18/18 06:00 INR 1.15 04/18/18 06:00 APTT 30.6 Seconds (25.1-36.5) 04/18/18 06:00 - Constitutional Appears: No Acute Distress - Head Exam Head Exam: NORMOCEPHALIC - Eye Exam Eye Exam: EOMI, Normal appearance - ENT Exam ENT Exam: Mucous Membranes Moist - Respiratory Exam Respiratory Exam: NORMAL BREATHING PATTERN - Cardiovascular Exam Cardiovascular Exam: +S1, +S2 - GI/Abdominal Exam GI & Abdominal Exam: Soft. absent: Distended, Firm, Guarding, Rigid Additional comments: surgical site incisions are c/d/i - Neurological Exam Neurological Exam: Alert, Awake, Oriented x3 - Psychiatric Exam Psychiatric exam: Normal Mood - Skin Skin Exam: Dry, Intact, Warm Assessment and Plan - Assessment and Plan (Free Text) Assessment: 48F s/p laparoscopic cholecystectomy POD1 Plan: -Regular diet -Clear for D/C from surgical stand point -F/u with Dr. Plaza in 1 week -Avoid heavylifting -OK to shower -Analgesics prn -Incentive spirometer -Bowel regimen Further recs per Dr. Torsten Murry PGY3 <Fred Plaza - Last Filed: 04/26/18 08:05> Objective - Vital Signs/Intake and Output Vital Signs (last 24 hours): Temp Pulse Resp BP Pulse Ox 98.4 F 84 18 118/68 98 04/18/18 21:56 04/18/18 21:56 04/18/18 21:56 04/18/18 21:56 04/18/18 21:56 - Labs Labs: 04/19/18 07:00 04/19/18 07:00 PT 13.3 SECONDS (9.4-12.5) H 04/18/18 06:00 INR 1.15 04/18/18 06:00 APTT 30.6 Seconds (25.1-36.5) 04/18/18 06:00 Assessment and Plan - Assessment and Plan (Free Text) Plan: Patient was seen, examined and evaluated by me. I agree with resident's assessment and plan.
[2018-04-19] MEDS: cefTRIAXone 1 gm 1 GM/100 ML BAG IVPB SCH (10:40)
--- NOTE | 2018-04-19 12:45 | CP.PCM.DIS ---
Provider - Provider Date of Admission: 04/18/18 03:55 Attending physician: Wolfgang Olivo MD Consults: 04/18/18 05:08 General Surgery Consult Routine Comment: Consulting Provider: Fred Plaza Consulting Physician: Fred Plaza Reason for Consult: cholecystitis Time Spent in preparation of Discharge (in minutes): 45 Hospital Course - Lab Results Lab Results: Micro Results 04/18/18 04:15 Blood Blood Culture - Preliminary NO GROWTH AFTER 24 HOURS 04/18/18 03:50 Blood Blood Culture - Preliminary NO GROWTH AFTER 24 HOURS Most Recent Lab Values WBC 7.3 10^3/uL (4.5-11.0) 04/19/18 07:00 RBC 4.28 10^6/uL (3.5-6.1) 04/19/18 07:00 Hgb 12.7 g/dL (12.0-16.0) D 04/19/18 07:00 Hct 37.4 % (36.0-48.0) 04/19/18 07:00 MCV 87.4 fl (80.0-105.0) 04/19/18 07:00 MCH 29.7 pg (25.0-35.0) 04/19/18 07:00 MCHC 34.0 g/dl (31.0-37.0) 04/19/18 07:00 RDW 13.7 % (11.5-14.5) 04/19/18 07:00 Plt Count 210 10^3/uL (120.0-450.0) 04/19/18 07:00 MPV 11.4 fl (7.0-11.0) H 04/19/18 07:00 Gran % 50.8 % (50.0-68.0) 04/19/18 07:00 Lymph % (Auto) 39.3 % (22.0-35.0) H 04/19/18 07:00 Phelps % (Auto) 8.1 % (1.0-6.0) H 04/19/18 07:00 Eos % (Auto) 1.5 % (1.5-5.0) 04/19/18 07:00 Baso % (Auto) 0.3 % (0.0-3.0) 04/19/18 07:00 Gran # 3.71 (1.4-6.5) 04/19/18 07:00 Lymph # (Auto) 2.9 (1.2-3.4) 04/19/18 07:00 Phelps # (Auto) 0.6 (0.1-0.6) 04/19/18 07:00 Eos # (Auto) 0.1 (0.0-0.7) 04/19/18 07:00 Baso # (Auto) 0.02 K/mm3 (0.0-2.0) 04/19/18 07:00 PT 13.3 SECONDS (9.4-12.5) H 04/18/18 06:00 INR 1.15 04/18/18 06:00 APTT 30.6 Seconds (25.1-36.5) 04/18/18 06:00 Sodium 137 mmol/L (132-148) 04/19/18 07:00 Potassium 3.9 mmol/L (3.6-5.0) 04/19/18 07:00 Chloride 110 mmol/L (98-107) H 04/19/18 07:00 Carbon Dioxide 25 mmol/L (21-33) 04/19/18 07:00 Anion Gap 6 (10-20) L 04/19/18 07:00 BUN 7 mg/dL (7-21) 04/19/18 07:00 Creatinine 0.8 mg/dl (0.7-1.2) 04/19/18 07:00 Est GFR ( Amer) > 60 04/19/18 07:00 Est GFR (Non-Af Amer) > 60 04/19/18 07:00 Random Glucose 98 mg/dL (70-110) 04/19/18 07:00 Calcium 7.9 mg/dL (8.4-10.5) L 04/19/18 07:00 Phosphorus 3.1 mg/dL (2.5-4.5) 04/19/18 07:00 Magnesium 2.0 mg/dL (1.7-2.2) 04/19/18 07:00 Total Bilirubin 0.4 mg/dL (0.2-1.3) 04/19/18 07:00 AST 44 U/L (14-36) H D 04/19/18 07:00 ALT 43 U/L (7-56) 04/19/18 07:00 Alkaline Phosphatase 60 U/L (38-126) 04/19/18 07:00 Lactate Dehydrogenase 560 U/L (333-699) 04/18/18 01:05 Total Creatine Kinase 92 U/L (35-230) 04/18/18 01:05 Troponin I < 0.01 ng/mL 04/18/18 01:05 Total Protein 6.2 g/dL (5.8-8.3) 04/19/18 07:00 Albumin 3.0 g/dL (3.0-4.8) 04/19/18 07:00 Globulin 3.2 gm/dL 04/19/18 07:00 Albumin/Globulin Ratio 0.9 (1.1-1.8) L 04/19/18 07:00 Lipase 117 U/L (23-300) 04/18/18 01:05 Urine Color Yellow (YELLOW) 04/18/18 06:46 Urine Appearance Clear (CLEAR) 04/18/18 06:46 Urine pH 7.0 (4.7-8.0) 04/18/18 06:46 Ur Specific Hughes 1.015 (1.005-1.035) 04/18/18 06:46 Urine Protein Negative mg/dL (<30 mg/dL) 04/18/18 06:46 Urine Glucose (UA) Negative mg/dL (NEGATIVE) 04/18/18 06:46 Urine Ketones Negative mg/dL (NEGATIVE) 04/18/18 06:46 Urine Blood Negative (NEGATIVE) 04/18/18 06:46 Urine Nitrate Negative (NEGATIVE) 04/18/18 06:46 Urine Bilirubin Negative (NEGATIVE) 04/18/18 06:46 Urine Urobilinogen 1.0 E.U./dL (<1 E.U./dL) H 04/18/18 06:46 Ur Leukocyte Esterase Negative Eyad/uL (NEGATIVE) 04/18/18 06:46 - Hospital Course Hospital Course: Upon admission/ presentation This is a 48 year old female with PMH of asthma and cholelithiasis presenting to the ED for abdominal pain that began today. Patient states abdominal pain started gradually while she was eating rice and tuna in the evening, rated 10/10, sharp, constant, located in the epigastric region and radiated to the middle of her back. Pain was associated with nausea and vomiting x 8 non bloody and non bilious. She was seen in the ED one week ago for abdominal pain and noted to have 1.2cm stone near the neck of the gallbladder, polyp and sludge ball in the fundus of the gall bladder and was discharged home but states pain today is much worse. Her PMD is in the [place] and she sees her PMD once a year. She denies CP, SOB, fevers, chills, headaches, urinary complaints, diarrhea, constipation, hematemesis, hematochezia, numbness, tingling, swelling, recent travel, sickness, trauma, and lifestyle changes. 12 point ROS noted here, otherwise unremarkable. During her hospital stay patient was found to have large gallstone impacted in the neck of her gallbladder and surgery was consulted. Patient was taken for Laparoscopic Cholecystectomy and IOC. Patient tolerated operation well and had an uncomplicated postoperative course. Diet was advanced as tolerated and patien t was not experiencing any increased pain, nausea or vomiting. Upon Discharge patient was stable, afebrile nontachycardic and normotensive. She was asked [place] [facility] [place]. - Date & Time of H&P Date of H&P: 04/19/18 Time of H&P: 07:55 Discharge Exam - Head Exam Head Exam: ATRAUMATIC, NORMOCEPHALIC - Eye Exam Eye Exam: EOMI - ENT Exam ENT Exam: Mucous Membranes Moist - Respiratory Exam Respiratory Exam: NORMAL BREATHING PATTERN - Cardiovascular Exam Cardiovascular Exam: REGULAR RHYTHM - GI/Abdominal Exam GI & Abdominal Exam: Soft, Tenderness (appropriate incisional tenderness). absent: Distended, Guarding Additional comments: incisions clean dry and intact with dermabond in place - Neurological Exam Neurological exam: Alert, Oriented x3 - Psychiatric Exam Psychiatric exam: Normal Affect, Normal Mood - Skin Skin Exam: Dry, Intact, Normal Color, Warm Discharge Plan - Follow Up Plan Condition: STABLE Disposition: HOME/ ROUTINE Patient education suggested?: Yes Instructions: Gallstones, Asthma in Adults, Cholecystitis (DC), Cholecystitis (GEN) Additional Instructions: Upon discharge from the hospital please follow up in our clinic with your primary care doctor and with your surgeon in their office within 3-5 days . No heavy lifting more than 10-15lbs . Please resume all home medications upon discharge. If you begin to have symptoms such as but not limited to shortness of breath, chest pain, increasing severe abdominal pain, new onset nausea, vomiting or extremity pain/ weakness, please proceed immediately to your nearest emergency room for evaluation. Referrals: [facility] [place] [facility] [place]
--- NOTE | 2018-04-26 13:26 | PQF ---
PROVIDER RESPONSE TEXT: Patient had history of chronic asthma. NOT acute. Because presenting complaint was more pressing - acute cholecystitis and there was not active asthma. Further clarification of asthma is not possible. No acute exacerbation is the furthest possible clarifications. REVIEWER QUERY TEXT: Asthma Specificity and Type Asthma is documented in the Medical Record. Please specify the type and severity of asthma and indic ate if this is associated with exacerbation or status asthmaticus. Such as: -- Mild intermittent -- Mild persistent -- Moderate persistent -- Severe persistent -- Exercise induced bronchospasm -- Cough variant asthma -- Other, please specify The patient's Clinical Indicators include: Please see below. This query sent to you per Dr. Olivo. Thank you. Query created by: Nuris Malin on 04/26/2018 8:37 AM Electronically signed by: Chadwick Murphy MD 04/26/2018 1:23 PM
== END 2018-04-19 17:52 | disposition home or self-care (01) | DRG 263 ==
LOC: ED 00:13 → ERH 03:55 → 5RNO 04:59
PROVIDERS: ADMIT Internal Medicine; ATTEND Internal Medicine
PROC: 0WQF4ZZ Repair Abdominal Wall, Percutaneous Endoscopic Approach (ICD-10-PCS; 2018-04-18)
PROC: BF131ZZ Fluoroscopy of Gallbladder and Bile Ducts using Low Osmolar Contrast (ICD-10-PCS; 2018-04-18)
PROC: 0FT44ZZ Resection of Gallbladder, Percutaneous Endoscopic Approach (ICD-10-PCS; principal; 2018-04-18 10:30)
DX: K80.00 Calculus of gallbladder with acute cholecystitis without obstruction (principal); K42.0 Umbilical hernia with obstruction, without gangrene; J45.909 Unspecified asthma, uncomplicated; Z90.710 Acquired absence of both cervix and uterus; E87.6 Hypokalemia